=== PATIENT | female | born 1935 | race Caucasian/White ===

== ENCOUNTER 2019-01-13 15:10 | Emergency (ER) | payer BC, MEDICARE ==
[2019-01-13] MEDS ORDERED: MECLIZINE HCL 12.5 MG TABLET PO ONE (15:30)
[2019-01-13] MEDS ORDERED: ONDANSETRON HCL/PF 4 MG/2 ML VIAL IVP ONE (15:30)
[2019-01-13] MEDS ORDERED: IV NS 0.9% 1,000 ML BAG IV ONE (15:30)
[2019-01-13] MEDS ORDERED: ONDANSETRON HCL/PF 4 MG/2 ML VIAL ONE (15:32)
[2019-01-13] MEDS ORDERED: MECLIZINE HCL 25 MG TABLET ONE (15:32)
== END 2019-01-13 17:01 | disposition home or self-care (01) ==
DX: R42 Dizziness and giddiness (principal); R51 Headache; Z60.2 Problems related to living alone
CPT/HCPCS: 36415; 70450; 80048; 85025; 85730; 93005 ×2; 96361; 96374; 99284; J2405; J7030; J8597